=== PATIENT | female | born 1950 | race Two or more races ===

== ENCOUNTER 2021-05-01 06:13 | Inpatient (IN) | payer MEDICARE, MEDICAID ==
[~2021-05-01] VITALS: Ht 167.6 cm; Wt 99.8 kg
[2021-05-01 09:21] LABS: BASOPHILS % 0.3 % (0.0-2.0); EOSINOPHILS % 0.9 % (0.0-5.0); HEMATOCRIT. 28.1 % (36.0-48.0); HEMOGLOBIN. 9.1 g/dL (12.0-16.0); LYMPHOCYTES % 17.7 % (20.0-50.0); MEAN CORPUSCULAR HEMOGLOBIN 28.6 pg (28.0-32.0); MEAN PLATELET VOLUME 7.4 fl (7.4-10.4); MONOCYTES % 12.7 % (2.0-8.0); NEUTROPHILS % 68.4 % (40.0-76.0); PLATELET 172 x1000/uL (130-400); RED CELL DISTRIBUTION WIDTH 16.6 % (11.6-14.6)
[2021-05-01 09:23] LABS: CHLORIDE 111 mEq/L (98-107)
[2021-05-01] MEDS ORDERED: FUROSEMIDE 40MG/4ML VIAL IV ONE (10:45)
[2021-05-01] MEDS ORDERED: ASPIRIN 81MG TABLET PO ONE (10:45)
[2021-05-01 16:00] VITALS: BP 171/69
[2021-05-01] MEDS ORDERED: ONDANSETRON HCL 4MG/2ML INJ IV PRN (16:00)
[2021-05-01 16:20] VITALS: BP 171/69
[2021-05-01] MEDS: AMLODIPINE 10MG TABLET PO SCH (17:19)
[2021-05-01 20:00] VITALS: BP 133/56
[2021-05-01 20:37] LABS: CLARITY URINE CLEAR (CLEAR); COLOR URINE YELLOW (YELLOW); KETONES URINE NEGATIVE (NEGATIVE); LEUKOCYTE ESTERASE URINE NEGATIVE (NEGATIVE); NITRITE URINE NEGATIVE (NEGATIVE); OCCULT BLOOD URINE 1+ (NEGATIVE); PH URINE 5.5 (4.5-8.0); PROTEIN URINE NEGATIVE (NEGATIVE); SPECIFIC GRAVITY URINE 1.008 (1.005-1.030); UROBILINOGEN URINE 0.2 E.U./dL (0.2-1.0)
[2021-05-01 20:59] LABS: *AMPHETAMINES SCREEN URINE NEGATIVE (NEGATIVE); *BARBITURATES SCREEN URINE NEGATIVE (NEGATIVE); *COCAINE SCREEN URINE NEGATIVE (NEGATIVE); METHADONE URINE SCREEN NEGATIVE (NEGATIVE); OPIATES URINE SCREEN NEGATIVE (NEGATIVE); PHENCYCLIDINE URINE SCREEN NEGATIVE (NEGATIVE)
[2021-05-01 21:00] LABS: *BENZODIAZEPINES SCREEN URINE NEGATIVE (NEGATIVE); CANNABINOID URINE SCREEN NEGATIVE (NEGATIVE)
[2021-05-02] VITALS: BP 125/47
[2021-05-02 00:50] LABS: CREATINE KINASE 72 IU/L (26-192); CREATINE KINASE MB FRACTION < 1.0 ng/mL (0.5-3.6)
[2021-05-02 04:00] VITALS: BP 120/60
[2021-05-02] MEDS ORDERED: POTA20TA82 PO (05:26)
[2021-05-02] MEDS ORDERED: PANT40TA51 PO (05:26)
[2021-05-02] MEDS ORDERED: AMIT-188 PO (05:26)
[2021-05-02] MEDS ORDERED: FURO20TA4 PO (05:26)
[2021-05-02] MEDS ORDERED: LOSA25TA26 PO (05:26)
[2021-05-02] MEDS ORDERED: APIX5TAB PO (05:26)
[2021-05-02 07:52] LABS: BASOPHILS % 0.3 % (0.0-2.0); EOSINOPHILS % 2.9 % (0.0-5.0); HEMATOCRIT. 27.3 % (36.0-48.0); HEMOGLOBIN. 9.2 g/dL (12.0-16.0); LYMPHOCYTES % 33.9 % (20.0-50.0); MEAN CORPUSCULAR HEMOGLOBIN 28.8 pg (28.0-32.0); MEAN CORPUSCULAR VOLUME 85.3 fL (81.0-99.0); MEAN PLATELET VOLUME 7.7 fl (7.4-10.4); MONOCYTES % 14.5 % (2.0-8.0); NEUTROPHILS % 48.4 % (40.0-76.0); PLATELET 176 x1000/uL (130-400); RED CELL DISTRIBUTION WIDTH 16.4 % (11.6-14.6)
[2021-05-02 08:00] VITALS: BP 145/52
[2021-05-02 08:01] LABS: CHLORIDE 107 mEq/L (98-107)
[2021-05-02 08:11] LABS: HDL CHOLESTEROL 55 mg/dL (40-59)
[2021-05-02 08:14] LABS: CREATINE KINASE 64 IU/L (26-192); LDL CHOLESTEROL 50 mg/dL (5-100)
[2021-05-02 08:19] LABS: CREATINE KINASE MB FRACTION < 1.0 ng/mL (0.5-3.6)
[2021-05-02] MEDS ORDERED: FUROSEMIDE 40MG/4ML VIAL IV SCH (09:00)
[2021-05-02] MEDS: AMLODIPINE 10MG TABLET PO SCH (09:37)
[2021-05-02] MEDS: DOCUSATE SODIUM 100MG CAPSULE PO PRN (09:37)
[2021-05-02] MEDS ORDERED: METOPROLOL TARTRATE 25MG TABLET PO SCH (10:45)
[2021-05-02] MEDS ORDERED: CYAN50003 PO (11:54)
[2021-05-02] MEDS ORDERED: METO-396 MT (11:54)
[2021-05-02 12:00] VITALS: BP 156/75
[2021-05-02] MEDS: SPIRONOLACTONE 25MG TABLET PO SCH (12:04)
[2021-05-02 16:07] VITALS: BP 155/71
[2021-05-02] MEDS: LOSARTAN POTASSIUM 25 MG TABLET PO SCH (16:15)
[2021-05-02] MEDS: FUROSEMIDE 40MG/4ML VIAL IV SCH (17:15)
[2021-05-02 20:00] VITALS: BP 148/58
[2021-05-03] VITALS: BP 139/42
[2021-05-03 04:00] VITALS: BP 140/51
[2021-05-03] MEDS: FUROSEMIDE 40MG/4ML VIAL IV SCH (05:27)
[2021-05-03] MEDS: DOCUSATE SODIUM 100MG CAPSULE PO PRN (05:30)
[2021-05-03 08:00] VITALS: BP 93/47
[2021-05-03] MEDS: AMLODIPINE 10MG TABLET PO SCH (09:00)
[2021-05-03] MEDS: LOSARTAN POTASSIUM 25 MG TABLET PO SCH (09:00)
[2021-05-03] MEDS ORDERED: ASPIRIN 81MG TABLET PO SCH (09:00)
[2021-05-03] MEDS: SPIRONOLACTONE 25MG TABLET PO SCH (09:17)
[2021-05-03 12:00] VITALS: BP 124/57
== END 2021-05-03 14:16 | disposition home health service (06) | DRG 291 ==
LOC: ER 06:13 → 7EST 11:09 → CANRESERV 11:32 → ENRESERV 11:32 → CANRESERV 12:12 → ENRESERV 12:12 → CANRESERV 14:33 → ENRESERV 14:35
PROVIDERS: ADMIT Family Medicine; ATTEND Family Medicine
DX: I11.0 Hypertensive heart disease with heart failure (principal); I50.33 Acute on chronic diastolic (congestive) heart failure; J45.901 Unspecified asthma with (acute) exacerbation; Z20.822 Contact with and (suspected) exposure to COVID-19; E78.5 Hyperlipidemia, unspecified; I25.10 Atherosclerotic heart disease of native coronary artery without angina pectoris; T50.1X6A Underdosing of loop [high-ceiling] diuretics, initial encounter; Y92.89 Other specified places as the place of occurrence of the external cause; Z95.1 Presence of aortocoronary bypass graft; Z79.899 Other long term (current) drug therapy; I25.2 Old myocardial infarction
CPT/HCPCS: 36415; 71045; 80053; 80061; 80305; 81003; 82550; 82553; 83605; 83880; 84484; 85025; 87426; 93005; 93306; 99285; J1940

== ENCOUNTER 2022-01-12 19:17 | Inpatient (IN) | payer MEDICARE, MEDICAID ==
[~2022-01-12] VITALS: Ht 167.6 cm; Wt 104.3 kg
[~2022-01-12 19:17] MED LIST: AMIT-188 PO; APIX5TAB PO; CYAN50003 PO; FURO20TA4 PO; LOSA25TA26 PO; METO-396 MT; PANT40TA51 PO; POTA-204 PO
[2022-01-12] MEDS ORDERED: NITROGLYCERIN OINT 1GM/INCH UDPKT TD ONE (19:45)
[2022-01-12 20:02] LABS: HEMATOCRIT. 29.5 % (36.0-48.0); HEMOGLOBIN. 9.9 g/dL (12.0-16.0); MEAN CORPUSCULAR HEMOGLOBIN 30.1 pg (28.0-32.0); MEAN CORPUSCULAR VOLUME 89.6 fL (81.0-99.0); MEAN PLATELET VOLUME 7.8 fl (7.4-10.4); PLATELET 153 x1000/uL (130-400); RED BLOOD CELL COUNT 3.29 mill/uL (4.2-5.4)
[2022-01-12 20:09] LABS: CHLORIDE 106 mEq/L (98-107)
[2022-01-12 20:36] LABS: PLATELET ESTIMATE NORMAL
[2022-01-12] MEDS ORDERED: CLONIDINE 0.1MG TABLET PO PRN (22:45)
[2022-01-12] MEDS ORDERED: IPRATROPIUM/ALBUTEROL 0.5-3(2.5)MG/3ML NEB NEB PRN (22:45)
[2022-01-12] MEDS ORDERED: MAGNESIUM/ALUMINUM HYDROXIDE/SIMETHICONE 30ML UDC PO PRN (22:45)
[2022-01-12] MEDS ORDERED: ZOLPIDEM TARTRATE 5MG TABLET PO PRN (22:45)
[2022-01-12] MEDS ORDERED: ONDANSETRON HCL 4MG/2ML INJ IV PRN (22:45)
[2022-01-12] MEDS ORDERED: ACETAMINOPHEN 325MG TABLET PO PRN ×2 (22:45)
[2022-01-12] MEDS ORDERED: NA PHOS,M-B/NA PHOS,DI-BA ENEMA 118ML PR PRN (22:45)
[2022-01-12] MEDS ORDERED: DOCUSATE SODIUM 100MG CAPSULE PO PRN (22:45)
[2022-01-12] MEDS ORDERED: GUAIFENESIN 200MG/10ML SUGAR FREE UDC PO PRN (22:45)
[2022-01-13 01:43] LABS: FOLIC ACID (FOLATE) SERUM 1.7 ng/mL (>5.38)
[2022-01-13] MEDS ORDERED: APIXABAN 2.5 MG TABLET PO SCH (06:00)
[2022-01-13 06:08] LABS: HEMATOCRIT. 28.2 % (36.0-48.0); HEMOGLOBIN. 9.4 g/dL (12.0-16.0); MEAN CORPUSCULAR HEMOGLOBIN 29.8 pg (28.0-32.0); MEAN CORPUSCULAR VOLUME 89.4 fL (81.0-99.0); MEAN PLATELET VOLUME 8.1 fl (7.4-10.4); PLATELET 150 x1000/uL (130-400); RED BLOOD CELL COUNT 3.16 mill/uL (4.2-5.4); RED CELL DISTRIBUTION WIDTH 14.8 % (11.6-14.6)
[2022-01-13 06:14] LABS: CHLORIDE 108 mEq/L (98-107)
[2022-01-13 06:21] LABS: PHOSPHORUS 3.7 mg/dL (2.5-4.9)
[2022-01-13 06:24] LABS: CREATINE KINASE 22 IU/L (26-192); CREATINE KINASE MB FRACTION < 1.0 ng/mL (0.5-3.6)
[2022-01-13] MEDS: FUROSEMIDE 40MG/4ML VIAL IVP SCH ×2 (09:09→21:32)
[2022-01-13] MEDS: PANTOPRAZOLE SODIUM 40 MG/VIAL IV SCH (09:09)
[2022-01-13] MEDS: METOPROLOL TARTRATE 25MG TABLET PO SCH ×2 (10:52→21:33)
[2022-01-13] MEDS: SPIRONOLACTONE 25MG TABLET PO SCH ×2 (10:53→21:32)
[2022-01-13 12:00] VITALS: BP 146/49
[2022-01-13 13:02] VITALS: BP 146/49
[2022-01-13] MEDS ORDERED: ATOR40TA70 MT (13:15)
[2022-01-13] MEDS ORDERED: DAPA5TAB MT (13:15)
[2022-01-13 15:33] LABS: PLATELET ESTIMATE NORMAL
[2022-01-13 16:00] VITALS: BP 147/63
[2022-01-13 17:05] LABS: CREATINE KINASE 39 IU/L (26-192); CREATINE KINASE MB FRACTION < 1.0 ng/mL (0.5-3.6)
[2022-01-13] MEDS: APIXABAN 5 MG TABLET PO SCH (17:32)
[2022-01-13 20:00] VITALS: BP 145/55
[2022-01-14] VITALS: BP 139/56
[2022-01-14 04:00] VITALS: BP 152/57
[2022-01-14] MEDS: APIXABAN 5 MG TABLET PO SCH ×2 (06:55→17:25)
[2022-01-14 08:00] VITALS: BP 165/66
[2022-01-14] MEDS: FUROSEMIDE 40MG/4ML VIAL IVP SCH ×2 (08:20→21:06)
[2022-01-14] MEDS: PANTOPRAZOLE SODIUM 40 MG/VIAL IV SCH (08:20)
[2022-01-14] MEDS: METOPROLOL TARTRATE 25MG TABLET PO SCH ×2 (08:21→21:17)
[2022-01-14] MEDS: SPIRONOLACTONE 25MG TABLET PO SCH ×2 (08:21→21:07)
[2022-01-14] MEDS: ALPRAZOLAM 0.5 MG TABLET PO PRN ×2 (11:55→21:06)
[2022-01-14] MEDS: NITROGLYCERIN 0.4MG TABLET SL SL PRN (11:56)
[2022-01-14 12:00] VITALS: BP 150/60
[2022-01-14 16:00] VITALS: BP 148/56
[2022-01-14 20:00] VITALS: BP 114/60
[2022-01-15] VITALS: BP 153/40
[2022-01-15 04:00] VITALS: BP 130/77
[2022-01-15] MEDS: APIXABAN 5 MG TABLET PO SCH (05:54)
[2022-01-15 08:00] VITALS: BP 141/64
[2022-01-15] MEDS: METOPROLOL TARTRATE 25MG TABLET PO SCH (08:21)
[2022-01-15] MEDS: SPIRONOLACTONE 25MG TABLET PO SCH (08:21)
[2022-01-15] MEDS: FUROSEMIDE 40MG/4ML VIAL IVP SCH (08:22)
[2022-01-15] MEDS ORDERED: FAMOTIDINE 20MG TABLET PO SCH (09:00)
[2022-01-15] MEDS: NITROGLYCERIN 0.4MG TABLET SL SL PRN (09:39)
[2022-01-15 12:00] VITALS: BP 129/64
[2022-01-16] MEDS ORDERED: FUROSEMIDE 40MG/4ML VIAL IVP SCH (09:00)
== END 2022-01-15 13:05 | disposition left against medical advice (07) | DRG 291 ==
LOC: ER 19:17 → MICUSO 22:05 → EDBEDREQTM 22:13 → EDBEDREQ 22:13 → SUPCPDRO 22:33 → 7WST 01-13 12:30
PROVIDERS: ADMIT Internal Medicine; ATTEND Internal Medicine
DX: I11.0 Hypertensive heart disease with heart failure (principal); I50.33 Acute on chronic diastolic (congestive) heart failure; N17.0 Acute kidney failure with tubular necrosis; J96.00 Acute respiratory failure, unspecified whether with hypoxia or hypercapnia; E44.1 Mild protein-calorie malnutrition; D63.8 Anemia in other chronic diseases classified elsewhere; J45.909 Unspecified asthma, uncomplicated; I25.10 Atherosclerotic heart disease of native coronary artery without angina pectoris; Z68.37 Body mass index [BMI] 37.0-37.9, adult; Z53.29 Procedure and treatment not carried out because of patient's decision for other reasons; Z95.5 Presence of coronary angioplasty implant and graft; I25.2 Old myocardial infarction; Z79.899 Other long term (current) drug therapy
CPT/HCPCS: 36415; 71045; 80053; 80061; 82550; 82553; 82607; 82746; 83036; 83540; 83550; 83735; 83880; 84100; 84443; 84484; 85025; 93005; 93306; 93970; 97166; 99285; C9113; J1940; J2405

== ENCOUNTER 2022-02-09 10:54 | Emergency (ER) | payer MEDICARE, MEDICAID ==
[~2022-02-09] VITALS: Ht 170.2 cm; Wt 107.0 kg
[~2022-02-09 10:54] MED LIST changes: +ATOR40TA70 MT; +DAPA5TAB MT
[2022-02-09] MEDS ORDERED: IBUPROFEN 600MG TABLET PO STA (15:13)
[2022-02-09 15:21] VITALS: BP 113/57
[2022-02-09 16:08] LABS: BASOPHILS % 0.4 % (0.0-2.0); EOSINOPHILS % 2.3 % (0.0-5.0); HEMATOCRIT. 33.6 % (36.0-48.0); LYMPHOCYTES % 33.9 % (20.0-50.0); MEAN CORPUSCULAR HEMOGLOBIN 29.4 pg (28.0-32.0); MEAN CORPUSCULAR VOLUME 89.6 fL (81.0-99.0); MEAN PLATELET VOLUME 7.6 fl (7.4-10.4); MONOCYTES % 12.6 % (2.0-8.0); NEUTROPHILS % 50.8 % (40.0-76.0); PLATELET 194 x1000/uL (130-400); RED BLOOD CELL COUNT 3.75 mill/uL (4.2-5.4); RED CELL DISTRIBUTION WIDTH 14.5 % (11.6-14.6)
[2022-02-09 16:16] LABS: CHLORIDE 106 mEq/L (98-107)
[2022-02-09 18:07] LABS: CLARITY URINE CLEAR (CLEAR); COLOR URINE YELLOW (YELLOW); KETONES URINE TRACE (NEGATIVE); LEUKOCYTE ESTERASE URINE NEGATIVE (NEGATIVE); NITRITE URINE NEGATIVE (NEGATIVE); OCCULT BLOOD URINE NEGATIVE (NEGATIVE); PH URINE 5.5 (4.5-8.0); PROTEIN URINE TRACE (NEGATIVE); SPECIFIC GRAVITY URINE 1.025 (1.005-1.030); UROBILINOGEN URINE 0.2 E.U./dL (0.2-1.0)
[2022-02-09] MEDS ORDERED: ACET-2708 PO (19:04)
[2022-02-09] MEDS ORDERED: CEPH500C2 PO (19:04)
== END 2022-02-09 19:22 | disposition home or self-care (01) ==
LOC: ER 10:54
DX: M54.59 Other low back pain (principal); I10 Essential (primary) hypertension; I25.2 Old myocardial infarction; Z95.1 Presence of aortocoronary bypass graft
CPT/HCPCS: 36415; 74176; 80053; 81003; 85025; 93005; 99285

== ENCOUNTER 2022-02-16 07:54 | Emergency (ER) | payer MEDICARE, MEDICAID ==
[~2022-02-16] VITALS: Ht 162.6 cm; Wt 104.0 kg
[~2022-02-16 07:54] MED LIST changes: +ACET-2708 PO; +CEPH500C2 PO
[2022-02-16] MEDS ORDERED: ACETAMINOPHEN 650MG/20.3ML UDC PO ONE (09:00)
[2022-02-16] MEDS ORDERED: IBUPROFEN 400MG TABLET PO ONE (09:00)
[2022-02-16 09:25] LABS: CLARITY URINE CLEAR (CLEAR); COLOR URINE YELLOW (YELLOW); KETONES URINE NEGATIVE (NEGATIVE); LEUKOCYTE ESTERASE URINE NEGATIVE (NEGATIVE); NITRITE URINE NEGATIVE (NEGATIVE); OCCULT BLOOD URINE 1+ (NEGATIVE); PROTEIN URINE TRACE (NEGATIVE); SPECIFIC GRAVITY URINE 1.016 (1.005-1.030)
[2022-02-16 10:00] VITALS: BP 122/59
== END 2022-02-16 10:30 | disposition home or self-care (01) ==
LOC: ER 07:54
DX: G89.29 Other chronic pain (principal); M54.9 Dorsalgia, unspecified; I11.0 Hypertensive heart disease with heart failure; I50.9 Heart failure, unspecified; E78.5 Hyperlipidemia, unspecified; I25.10 Atherosclerotic heart disease of native coronary artery without angina pectoris; Z95.5 Presence of coronary angioplasty implant and graft
CPT/HCPCS: 81003; 99283

== ENCOUNTER 2022-03-05 19:47 | Emergency (ER) | payer MEDICARE, MEDICAID ==
[~2022-03-05] VITALS: Ht 167.6 cm; Wt 107.0 kg
[2022-03-05 19:59] VITALS: BP 164/54
[2022-03-05] MEDS ORDERED: MORPHINE SULFATE 10 MG/ML CPJ IM ONE (21:00)
== END 2022-03-06 00:06 | disposition home or self-care (01) ==
LOC: ER 19:49
DX: M25.551 Pain in right hip (principal); J45.909 Unspecified asthma, uncomplicated; E78.00 Pure hypercholesterolemia, unspecified; I10 Essential (primary) hypertension; I25.2 Old myocardial infarction
CPT/HCPCS: 73502; 96372; 99283; J2270

== ENCOUNTER 2024-06-09 11:23 | Emergency (ER) | payer MEDICARE, MEDICAID ==
[~2024-06-09] VITALS: Ht 160 cm; Wt 95.0 kg
[~2024-06-09 11:23] MED LIST changes: -AMIT-188 PO; +AMIT50TA4 PO; -CYAN50003 PO; +CYAN50007 PO
[2024-06-09 11:26] VITALS: BP 102/51; PULSE 101; RESP 18; TEMP 98.4; O2SAT 98
[2024-06-09] MEDS ORDERED: IBUPROFEN 600MG TABLET PO STA (17:23)
== END 2024-06-09 18:24 | disposition left against medical advice (07) ==
LOC: ER 11:34
DX: M54.50 Low back pain, unspecified (principal); Z88.1 Allergy status to other antibiotic agents; Z53.21 Procedure and treatment not carried out due to patient leaving prior to being seen by health care provider
CPT/HCPCS: 72100

== ENCOUNTER 2025-04-17 10:44 | Emergency (ER) | payer MEDICARE, MEDICAID ==
[~2025-04-17] VITALS: Ht 165.1 cm; Wt 73.0 kg
[~2025-04-17 10:44] MED LIST changes: +AMIT50TA15 PO; -AMIT50TA4 PO
[2025-04-17 10:51] VITALS: TEMP 98.4; O2SAT 96
[2025-04-17] MEDS: ACETAMINOPHEN 500MG TABLET PO ONE (11:49)
[2025-04-17] MEDS ORDERED: ACET-2708 MT (12:39)
[2025-04-17 13:40] VITALS: BP 173/62; PULSE 76; RESP 16; O2SAT 100
== END 2025-04-17 13:42 | disposition home or self-care (01) ==
LOC: ER 11:55
DX: M54.50 Low back pain, unspecified (principal); I11.0 Hypertensive heart disease with heart failure; I50.9 Heart failure, unspecified; Z79.899 Other long term (current) drug therapy; Z88.1 Allergy status to other antibiotic agents
CPT/HCPCS: 72100; 99283